=== PATIENT | female | born 1975 | race Caucasian/White ===

== ENCOUNTER 2018-05-03 09:37 | Emergency (ER) | payer MEDICARE, OTHER ==
[2018-05-03 09:49] VITALS: RESP 18
--- NOTE | 2018-05-03 10:35 | ED ---
General Adult HPI - General Chief complaint: Psychiatric Symptoms Stated complaint: SUICIDAL Time Seen by Provider: 05/03/18 09:40 Source: patient, RN notes reviewed Mode of arrival: ambulatory Limitations: no limitations - History of Present Illness Initial comments: This is a 42-year-old female who presents emergency Department complaining of being suicidal. Patient states she started having some suicidal thoughts about a month ago and they have progressed. Patient states her biggest concern is the fact that she is a single mother and her 18 Is Constantly Getting into Arguments with Her. Patient States She Is on Disability. She Does Not Work. Patient Denies Any Physical Complaints Today. Patient Denies Any Fever Chills or Cough per Patient Denies Any Chest Pain Difficulty Breathing Shortest Breath per Patient Denies Abdominal Pain Patient Denies Nausea Vomiting Diarrhea. - Related Data Home Medications Medication Instructions Recorded Confirmed Multivitamin,Therapeutic [Thera] 1 tab PO DAILY 05/03/18 05/03/18 Sertraline [Zoloft] 50 mg PO DAILY 05/03/18 05/03/18 Allergies Allergy/AdvReac Type Severity Reaction Status Date / Time No Known Allergies Allergy Verified 05/03/18 12:08 Review of Systems ROS Statement: Those systems with pertinent positive or pertinent negative responses have been documented in the HPI. ROS Other: All systems not noted in ROS Statement are negative. Past Medical History Additional Past Medical History / Comment(s): recovering alcoholic, heart murmur , chronic bronchitis History of Any Multi-Drug Resistant Organisms: None Reported Past Surgical History: Tubal Ligation Additional Past Surgical History / Comment(s): paul to left leg Past Psychological History: ADD/ADHD, Bipolar, Depression, PTSD, Schizoaffective Disorder Smoking Status: Current every day smoker Past Alcohol Use History: None Reported Past Drug Use History: None Reported General Exam - General Exam Comments Initial Comments: GENERAL: Patient is well-developed and well-nourished. Patient is nontoxic and well- hydrated and is in no acute distress. ENT: Neck is soft and supple. No significant lymphadenopathy is noted. Oropharynx is clear. Moist mucous membranes. Neck has full range of motion without eliciting any pain. EYES: The sclera were anicteric and conjunctiva were pink and moist. Extraocular movements were intact and pupils were equal round and reactive to light. Eyelids were unremarkable. PULMONARY: Unlabored respirations. Good breath sounds bilaterally. No audible rales rhonchi or wheezing was noted. CARDIOVASCULAR: There is a regular rate and rhythm without any murmurs gallops or rubs. ABDOMEN: Soft and nontender with normal bowel sounds. No palpable organomegaly was noted. There is no palpable pulsatile mass. SKIN: Skin is clear with no lesions or rashes and otherwise unremarkable. NEUROLOGIC: Patient is alert and oriented x3. Cranial nerves II through XII are grossly intact. Motor and sensory are also intact. Normal speech, volume and content. Symmetrical smile. MUSCULOSKELETAL: Normal extremities with adequate strength and full range of motion. No lower extremity swelling or edema. No calf tenderness. LYMPHATICS: No significant lymphadenopathy is noted PSYCHIATRIC: Patient states she suicidal patient denies any homicidal ideations. Limitations: no limitations Course Vital Signs 05/03/18 09:43 Temperature 98.2 F Pulse Rate 73 Respiratory 18 Rate Blood Pressure 148/82 O2 Sat by Pulse 97 Oximetry Medical Decision Making - Medical Decision Making I filled out a clinical certification to have the patient transferred to a psychiatric facility. - Lab Data Lab Results 05/03/18 Range/Units 12:15 Urine Opiates Screen Not Detected (NotDetected) Ur Oxycodone Screen Not Detected (NotDetected) Urine Methadone Screen Not Detected (NotDetected) Ur Propoxyphene Screen Not Detected (NotDetected) Ur Barbiturates Screen Not Detected (NotDetected) U Tricyclic Antidepress Not Detected (NotDetected) Ur Phencyclidine Scrn Not Detected (NotDetected) Ur Amphetamines Screen Not Detected (NotDetected) U Methamphetamines Scrn Not Detected (NotDetected) U Benzodiazepines Scrn Not Detected (NotDetected) Urine Cocaine Screen Not Detected (NotDetected) U Marijuana (THC) Screen Not Detected (NotDetected) Disposition Clinical Impression: Depression, Suicidal ideation Disposition: TRANSFER TO PSYCH HOSP/UNIT Referrals: Faith Mireles MD [Primary Care Provider] - 1-2 days Time of Disposition: 12:52
[2018-05-03] MEDS ORDERED: NICOTINE 21MG/24HR PATCH TRANSDERM STA (12:28)
[2018-05-03 12:48] LABS: Amphetamine Screen,Urine Not Detected (NotDetected); Benzodiazepines Screen,Urine Not Detected (NotDetected); Cocaine Screen,Urine Not Detected (NotDetected); Methadone Screen, Urine Not Detected (NotDetected); Opiate Screen,Urine Not Detected (NotDetected); Phencyclidine Screen,Urine Not Detected (NotDetected); Tricyclic Antidepressant,Urine Not Detected (NotDetected); Urn Cannabinoid Scrn Not Detected (NotDetected)
[2018-05-03 12:49] LABS: Barbiturate Screen,Urine Not Detected (NotDetected); Oxycodone Screen, Urine Not Detected (NotDetected)
[2018-05-03] MEDS ORDERED: LORazepam 1 MG TAB PO STA (12:51)
[2018-05-03 16:37] VITALS: BP 138/65; PULSE 77; TEMP 98.3
== END 2018-05-03 16:05 ==
LOC: EDSEX → EC 09:37
DX: F32.9 Major depressive disorder, single episode, unspecified (principal); R45.851 Suicidal ideations; F25.0 Schizoaffective disorder, bipolar type; F43.10 Post-traumatic stress disorder, unspecified; F17.200 Nicotine dependence, unspecified, uncomplicated; Z79.899 Other long term (current) drug therapy
CPT/HCPCS: 82075; 80306; 99285; S4990

== ENCOUNTER 2019-06-08 08:31 | Emergency (ER) | payer MEDICARE, OTHER ==
--- NOTE | 2019-06-08 08:42 | ED ---
Lower Extremity Injury HPI - General Stated Complaint: fall, rt leg pain Time Seen by Provider: 06/08/19 08:37 Source: patient, EMS, RN notes reviewed Mode of arrival: EMS Limitations: physical limitation - History of Present Illness Initial Comments: 43-year-old female presents emergency Department chief complaint of right leg injury. Patient states that she slipped on ice states that she fell directly onto her right knee. She has pain just proximal to her right knee. States it's very severe. No head injury no other noted extremity injuries. Patient refuses narcotic pain medications states that she is recovering opiate addict. Patient did receive Toradol. - Related Data Home Medications Medication Instructions Recorded Confirmed Multivitamin,Therapeutic [Thera] 1 tab PO DAILY 05/03/18 05/03/18 Sertraline [Zoloft] 50 mg PO DAILY 05/03/18 05/03/18 Allergies Allergy/AdvReac Type Severity Reaction Status Date / Time No Known Allergies Allergy Verified 05/03/18 12:08 Review of Systems ROS Statement: Those systems with pertinent positive or pertinent negative responses have been documented in the HPI. ROS Other: All systems not noted in ROS Statement are negative. Past Medical History Additional Past Medical History / Comment(s): recovering alcoholic, heart murmur, chronic bronchitis History of Any Multi-Drug Resistant Organisms: None Reported Past Surgical History: Tubal Ligation Additional Past Surgical History / Comment(s): paul to left leg Past Psychological History: ADD/ADHD, Bipolar, Depression, PTSD, Schizoaffective Disorder Smoking Status: Current every day smoker Past Alcohol Use History: None Reported Past Drug Use History: None Reported General Exam General appearance: alert, in no apparent distress Neck exam: Present: normal inspection, full ROM. Absent: tenderness, meningismus, lymphadenopathy Respiratory exam: Present: normal lung sounds bilaterally. Absent: respiratory distress, wheezes, rales, rhonchi, stridor Cardiovascular Exam: Present: regular rate, normal rhythm, normal heart sounds. Absent: systolic murmur, diastolic murmur, rubs, gallop, clicks Extremities exam: Present: other (Right leg pulses equal bilaterally compared to left, tenderness the right knee, proximal to the right knee there is moderate swelling no proximal femur tenderness no distal tib-fib tenderness) Course Vital Signs 06/08/19 06/08/19 08:36 08:42 Temperature 97.6 F Pulse Rate 70 71 Respiratory 18 20 Rate Blood Pressure 143/68 130/86 O2 Sat by Pulse 100 99 Oximetry - Reevaluation(s) Reevaluation #1: 06/08/19 09:[address] Hernandez on-call for orthopedics recommends transfer. Reevaluation #2: 06/08/19 09:[address] Garnett at [facility] accepts transfer for orthopedic trauma surgery Procedures - Procedures Initial comment: Knee immobilizer was was applied to the right leg. Medical Decision Making - Medical Decision Making Patient will be transferred to [facility] for trauma orthopedic surgery with Dr. Garnett, case discussed with the ER and [facility] also. Patient is neurovascularly intact closed fracture. Disposition Clinical Impression: Fall, Fracture of distal femur Disposition: OTHER INSTITUTION NOT DEFINED Condition: Stable Referrals: Faith Mireles MD [Primary Care Provider] - 1-2 days - Out of Hospital Transfer - Req. Specs Out of Hospital Transfer - Requested Specifics: Other Emergency Center ([facility])
[2019-06-08 08:43] VITALS: TEMP 97.6
[2019-06-08 08:55] VITALS: PULSE 71; RESP 20
--- NOTE | 2019-06-08 08:59 | XR ---
EXAMINATION TYPE: XR knee limited RT DATE OF EXAM: 06/08/2019 COMPARISON: NONE HISTORY: 43-year-old female tripped and fell, pain TECHNIQUE: 3 views FINDINGS: Underlying the joint effusion. Degenerative spurring within all 3 compartments. Chronic appearing fra gmentation at the upper pole of the patella. Large spiral fracture of the distal femoral shaft extend ing into the metadiaphysis and metaphysis. No clear visualized intra-articular extension. There is up to 2.0 cm of medial displacement and slight lateral angulation. IMPRESSION: 1. Large spiral fracture distal shaft extending into the distal metaphysis of the femur with a 2 cm o f medial displacement and slight lateral angulation. 2. No visualized intra-articular extension. 3. Underlying tricompartmental osteoarthrosis and knee joint effusion.
[2019-06-08 10:46] VITALS: BP 130/80
== END 2019-06-08 10:20 | disposition other institution (70) ==
LOC: EC 08:31
DX: S72.401A Unspecified fracture of lower end of right femur, initial encounter for closed fracture (principal); F32.9 Major depressive disorder, single episode, unspecified; F43.10 Post-traumatic stress disorder, unspecified; F17.200 Nicotine dependence, unspecified, uncomplicated; Z79.899 Other long term (current) drug therapy; W00.9XXA Unspecified fall due to ice and snow, initial encounter
CPT/HCPCS: 99285

== ENCOUNTER → 2019-10-20 | Outpatient (CLI) | payer MEDICARE, OTHER ==
--- NOTE | 2019-10-20 13:02 | XR ---
EXAMINATION TYPE: XR knee limited RT DATE OF EXAM: 10/20/2019 COMPARISON: 06/08/2019 right knee HISTORY: Distal femoral fracture, follow-up TECHNIQUE: Three-view right knee FINDINGS: Medullary paul is present with fixation. Fracture fragments are present. Some interval heali ng has occurred. The joint space has degenerative changes. No new fractures are identified. Patellofemoral joint space narrowing is present. No joint effusion is evident. IMPRESSION: 1. Some interval healing of a distal femoral fracture.
--- NOTE | 2019-10-20 13:03 | XR ---
EXAMINATION TYPE: XR femur RT DATE OF EXAM: 10/20/2019 COMPARISON: None HISTORY: Fracture TECHNIQUE: 2 view right femur FINDINGS: Medullary paul is present. Femoral plate with the acetabulum. The distal metaphyseal femoral fracture has partial healing. Degenerative joint changes are at the knee. IMPRESSION: 1. Partial healing of prior distal femoral fracture.
== END | disposition home or self-care (01) ==
LOC: RADXRMAIN 12:25
PROVIDERS: ATTEND Orthopaedic Surgery Orthopaedic Trauma
DX: S72.401A Unspecified fracture of lower end of right femur, initial encounter for closed fracture (principal)